=== PATIENT | male | born 1975 | race Caucasian/White ===

== ENCOUNTER 2016-03-13 10:00 | Outpatient (CLI) | payer OTHER | END 2016-03-13 10:01 | disposition home or self-care (01) | DX: G47.33 Obstructive sleep apnea (adult) (pediatric) (principal) ==

== ENCOUNTER 2017-07-06 21:54 | Emergency (ER) | payer OTHER ==
[2017-07-06] MEDS ORDERED: PROPARACAINE 0.5% OPHTH DROPS 15 ML EACHEYE STA (22:36)
[2017-07-06] MEDS ORDERED: POLYMYXIN B/TRIMETH OPHTH DROPS LEFTEYE STA (23:04)
--- NOTE | 2017-07-06 23:07 | ED Physician Documentation ---
PD HPI OPHTHO - Stated complaint Stated Complaint: POSS LT EYE FOREIGN OBJECT - Chief complaint Chief Complaint: Heent - History obtained from History obtained from: Patient - History of Present Illness Timing - onset: Other (Gradual but rapid onset left eye pain and purulent discharge today without visual deficit. His son had something similar recently. He does not wear contacts.) Review of Systems Constitutional: reports: Reviewed and negative Eyes: reports: Discharge, Irritation. denies: Loss of vision, Decreased vision PD PAST MEDICAL HISTORY - Past Medical History Cardiovascular: High cholesterol Musculoskeletal: Gout - Past Surgical History Past Surgical History: No - Present Medications Home Medications: Ambulatory Orders Medication Instructions Recorded Confirmed Hydrocodone/Acetaminophen 1 - 2 each PO Q6H PRN #15 tablet 05/05/14 [Hydrocodon-Acetaminophen 5-325] Polymyxin B Sulf/Trimethoprim 1 drops OP 5XD 7 Days drops 07/06/17 [Polymyxin B-Tmp Eye Drops] - Allergies Allergies/Adverse Reactions: Allergies Allergy/AdvReac Type Severity Reaction Status Date / Time No Known Drug Allergies Allergy Verified 07/06/17 22:02 - Social History Does the pt smoke?: No Smoking Status: Former smoker Does the pt drink ETOH?: No Does the pt have substance abuse?: No - Immunizations Immunizations are current?: Yes PD ED PE NORMAL - Vitals Vital signs reviewed: Yes - General General: Alert and oriented X 3, No acute distress - HEENT HEENT: Other (He has mucopurulent conjunctivitis on the left without flourescein uptake.) - Neck Neck: Supple, no meningeal sign, No bony TTP - Neuro Neuro: Alert and oriented X 3, Normal speech Results - Vitals Vitals: Vital Signs - 24 hr 07/06/17 21:58 Temperature 36.2 C L Heart Rate 91 Respiratory 18 Rate Blood Pressure 146/99 H O2 Saturation 98 Oxygen O2 Source Room air Departure - Departure Disposition: Home, Self Care Clinical Impression: Conjunctivitis Qualifiers: Conjunctivitis type: acute Acute conjunctivitis type: bacterial Laterality: left Qualified Code(s): H10.32 - Unspecified acute conjunctivitis, left eye Condition: Good Record reviewed to determine appropriate education?: Yes Instructions: ED Conjunctivitis Bacterial Prescriptions: Polymyxin B Sulf/Trimethoprim [Polymyxin B-Tmp Eye Drops] 1 drops OP 5XD 7 Days drops Comments: Return if worsening, [place]. Your blood pressure was elevated today on check into the emergency department. This does not mean that you have hypertension, it is a common phenomenon to come to the emergency department and have elevated blood pressure. I recommend that you see your primary care physician within the week to have it rechecked when you are feeling better.
[2017-07-06 23:15] VITALS: BP 142/78
== END 2017-07-06 23:15 | disposition home or self-care (01) ==
LOC: ED 21:54
DX: H10.32 Unspecified acute conjunctivitis, left eye (principal); R03.0 Elevated blood-pressure reading, without diagnosis of hypertension; E78.00 Pure hypercholesterolemia, unspecified; M10.9 Gout, unspecified; Z87.891 Personal history of nicotine dependence
CPT/HCPCS: 87070; 87077; 99283; A9270; J3490

== ENCOUNTER 2018-01-07 14:48 | Outpatient (CLI) | payer OTHER | END 2018-01-07 14:49 | disposition home or self-care (01) | LOC: SC 14:48 | PROVIDERS: ATTEND Nurse Practitioner Family | DX: G47.33 Obstructive sleep apnea (adult) (pediatric) (principal); G47.00 Insomnia, unspecified | CPT/HCPCS: 99212; 99215 ==

== ENCOUNTER 2019-11-10 16:27 | Outpatient (CLI) | payer OTHER ==
--- NOTE | 2019-11-10 16:58 | SLEEP CARE CONSULTATION ---
Information from patient questionnaire entered by Oralia Siu. I have reviewed and concur with the information entered by Oralia Siu. This document represents the service I personally performed and the decisions made by , Angelina Vasquez ARNP. History of Present Illness Service Date and Time: 11/10/2019 1627 Previous diagnosis: Mild, Obstructive Sleep Apnea-Hypopnea Syndrome AHI: 7.3 (in 2016) Reason for follow up: annual (last seen 2018 - lost CPAP) Equipment type: CPAP Equipment obtained from: Other ([employer]; not getting supplies and needs a new machine) Mask style: Full face Backup mask available: Yes Last cushion change: 1 year Prior sleep studies: Yes Year and Where: 2016 - [facility] Type of Sleep Study: Polysomnography HPI additional information: JOHN MCMAHAN was diagnosed to have mild, AHI 7.3, obstructive sleep apnea- hypopnea syndrome and returned today for CPAP therapy annual follow-up. He lost his CPAP on a plane 5 months ago. He has not been using a CPAP since that time. Subjective Patient concerns: reports: mask discomfort (nose is hitting mask and causes leaks), air blowing in eyes, mask leak noise. denies: aerophagia, condensation in mask/hose, nasal congestion, dry mouth, nose, throat, epistaxis, other Observed to snore while using device: Yes (mask not fitting) Current pressure setting perceived as: comfortable On therapy, patient: reports: sleeping better, awakening more refreshed, being more awake and alert during the day, more rested overall, other (no headaches). denies: drowsiness while driving Initial [place] Sleepiness Scale score: 15 (in 2016) Allergies and Home Medications Drug allergies reviewed: Yes (NKDA) Home medication list reviewed: Yes (Wellbutrin dose doubled and another depression medication) Review of Systems Review of systems same as previous: Yes (no changes, except weight) Physical Exam Heart Rate: 99 O2 Saturation: 96 Height: 6 ft 2 in Weight: 260 lb Body Mass Index: 33.3 BMI Classification: Obese Impression and Plan 1. Obstructive Sleep Apnea-Hypopnea Syndrome, mild, who had not been on CPAP therapy in the last 5 months because he lost his machine. He states when he does use the CPAP he has better sleep quality, has no headaches and is more rested overall. The patients CPAP was lost 5 months ago. Thus, the CPAP will be need to be replaced. He also needs a mask refitting since the mask he has touches his nose and is not fitting well/no sealing well. A DWO prescription will be made. Compliance guidelines for new device and follow up discussed. Patient's apnea severity and rationale for treatment to reduce apnea, improve sleep quality and reduce cardiovascular and cerebrovascular events was reviewed. I also reviewed the benefit of consistent device use of CPAP for his depression and anxiety. * Continue auto CPAP pressure at 9-15 cmH2O * Update Machine and mask refitting * Notify me if snoring with mask or feeling that the pressure is too much or too little * Attempt to lose weight * Call this office if any problems using CPAP * Return for follow up in 1 month, or sooner if concerns arise Visit Type: In Office Time Spent with Patient (minutes): 20 Provider Statement: I spent 100% of the Face to Face Visit with the patient with greater than 50% spent counseling the patient and coordination of care.
== END 2019-11-10 16:28 | disposition home or self-care (01) ==
LOC: SC 16:27
PROVIDERS: ATTEND Nurse Practitioner Family
DX: G47.33 Obstructive sleep apnea (adult) (pediatric) (principal); E66.9 Obesity, unspecified; Z68.33 Body mass index [BMI] 33.0-33.9, adult
CPT/HCPCS: 99212; 99213